=== PATIENT | female | born 1995 | race Caucasian/White ===

== ENCOUNTER 2020-03-28 19:42 | Outpatient (CLI) | payer OTHER | END 2020-03-29 09:51 | disposition home or self-care (01) | LOC: OBS/DEL 19:42 | PROVIDERS: ATTEND Specialist | DX: O26.893 Other specified pregnancy related conditions, third trimester (principal); R10.2 Pelvic and perineal pain; K08.89 Other specified disorders of teeth and supporting structures; Z20.828 Contact with and (suspected) exposure to other viral communicable diseases ==